=== PATIENT | male | born 1955 | race African-American/Black ===

== ENCOUNTER 2021-03-23 04:50 | Day surgery (SDC) | payer OTHER ==
[2021-03-21 17:09] VITALS: BMI 26.3
[2021-03-23] MEDS ORDERED: BACITRACIN 15 GM TUBE TOPICAL OINTMENT ONE (11:10)
[2021-03-23] MEDS ORDERED: DEXMEDETOMIDINE HCL 200 MCG/2 ML IVPB ONE (12:06)
[2021-03-23] MEDS ORDERED: ceFAZolin 2 GRAM PREMIX BAG IVPB ONE (12:30)
[2021-03-23] MEDS ORDERED: ceFAZolin SODIUM 1 GM VIAL ONE (12:40)
[2021-03-23 19:40] VITALS: BP 136/80; PULSE 95; TEMP 97.8
== END 2021-03-23 19:22 | disposition home or self-care (01) ==
LOC: JASU-SURG 04:50
PROVIDERS: ATTEND Urology
PROC: 0V503ZZ Destruction of Prostate, Percutaneous Approach (ICD-10-PCS; principal; 2021-03-23 12:00)
DX: C61 Malignant neoplasm of prostate (principal)
CPT/HCPCS: 55873; C2618; 94760